=== PATIENT | male | born 2005 ===

== ENCOUNTER 2025-10-30 14:11 | Emergency (ER) | payer OTHER ==
[~2025-10-30] VITALS: Ht 175.3 cm; Wt 86.2 kg
[2025-10-30] MEDS ORDERED: LIDOCAINE 2.5%/PRILOCAINE 2.5% CREAM 30 GM TUBE TOP ONE (14:30)
== END 2025-10-30 15:59 | disposition home or self-care (01) ==
LOC: ER 14:11
DX: S50.862A Insect bite (nonvenomous) of left forearm, initial encounter (principal); R05.8 Other specified cough; R06.2 Wheezing; R11.10 Vomiting, unspecified; W57.XXXA Bitten or stung by nonvenomous insect and other nonvenomous arthropods, initial encounter
CPT/HCPCS: 71046; 99283-25; A9270

== ENCOUNTER 2025-11-03 19:37 | Emergency (ER) | payer OTHER ==
[~2025-11-03] VITALS: Ht 172.7 cm; Wt 79.4 kg
== END 2025-11-03 22:50 | disposition home or self-care (01) ==
LOC: ER 19:37
DX: G56.02 Carpal tunnel syndrome, left upper limb (principal)
CPT/HCPCS: 99283